=== PATIENT | female | born 1965 | race Caucasian/White ===

== ENCOUNTER 2019-12-09 14:50 | Outpatient (CLI) | payer BC, SELFPAY ==
--- NOTE | ~2019-12-09 | MM_ITS ---
EXAMINATION: MM screening [facility] BI w babs HISTORY: Screening mammogram, family history of breast cancer in her mother. TECHNIQUE: Craniocaudal and mediolateral oblique 3-D tomosynthesis images were obtained and synthetic 2-D images were generated. CAD analysis was submitted and interpreted. COMPARISON: 12/01/2018, 09/10/2017 BREAST PARENCHYMAL COMPOSITION: There are scattered areas of fibroglandular density. FINDINGS: There is no evidence of suspicious mass, calcification, or architectural distortion to sugg est malignancy in either breast. There has been no suspicious interval change. IMPRESSION: 1. No mammographic evidence of malignancy. 2. Recommend routine screening mammography in one year. BI-RADS Category 1: Negative Reviewed, dictated and finalized at location A. NG SETTER
== END 2019-12-09 14:51 | disposition home or self-care (01) ==
LOC: CHSIMG 14:51
PROVIDERS: PCP Internal Medicine; Visit Provider Internal Medicine
DX: Z12.31 Encounter for screening mammogram for malignant neoplasm of breast (principal)
CPT/HCPCS: 77063; 77067

== ENCOUNTER 2021-01-23 15:17 | Outpatient (CLI) | payer BC, SELFPAY ==
--- NOTE | ~2021-01-23 | MM_ITS ---
EXAMINATION: MM screening [facility] BI w babs HISTORY: Screening mammogram TECHNIQUE: Craniocaudal and mediolateral oblique 3-D tomosynthesis images were obtained and synthetic 2-D images were generated. CAD analysis was submitted and interpreted. COMPARISON: 12/09/2019, 12/01/2018, 09/10/2017 BREAST PARENCHYMAL COMPOSITION: There are scattered areas of fibroglandular density. FINDINGS: There is no evidence of suspicious mass, calcification, or architectural distortion to sugg est malignancy in either breast. There has been no suspicious interval change. IMPRESSION: 1. No mammographic evidence of malignancy. 2. Recommend routine screening mammography in one year. BI-RADS Category 1: Negative Reviewed, dictated and finalized at location A.
== END 2021-01-23 15:18 | disposition home or self-care (01) ==
LOC: CHSIMG 15:18
PROVIDERS: PCP Internal Medicine; Visit Provider Internal Medicine
DX: Z12.31 Encounter for screening mammogram for malignant neoplasm of breast (principal)
CPT/HCPCS: 77063; 77067

== ENCOUNTER 2021-05-10 07:36 | Outpatient (CLI) | payer BC, SELFPAY ==
[2021-05-10 07:53] LABS: Add Urine Microscopic? YES; Appearance Urine Clear (Clear); Basophils Absolute Auto 0.03 K/mm3 (0.00-0.10); Basophils Percent Auto 0.5 % (0.0-1.0); Bilirubin Urine Negative (Negative); Blood Urine Negative (Negative); Color Urine Light Yellow (Yellow); Eosinophils Absolute Auto 0.22 K/mm3 (0.02-0.50); Glucose Urine UA Negative (Negative); Hematocrit 40.8 % (35.0-49.0); Hemoglobin 13.6 g/dL (12.0-15.0); Immature Granulocyte Absolute 0.02 K/mm3 (0.00-0.00); Immature Granulocyte Percent A 0.4 % (0.0-0.0); Ketones Urine Negative (Negative); Leukocyte Esterase Ur 2+ (Negative); Lymphocytes Absolute Auto 1.94 K/mm3 (1.10-4.50); Lymphocytes Percent Auto 35.5 % (18.0-42.0); Mean Corpuscular HGB Conc 33.3 g/dL (32.0-36.0); Mean Corpuscular Hemoglobin 28.8 pg (27.0-31.0); Mean Corpuscular Volume 86.4 fL (78.0-102.0); Mean Platelet Volume 9.4 fl (9.2-11.8); Monocytes Absolute Auto 0.53 K/mm3 (0.10-0.90); Monocytes Percent Auto 9.7 % (2.0-11.0); Neutrophils Absolute Auto 2.7 K/mm3 (1.7-7.2); Neutrophils Percent Auto 49.9 % (50.0-70.0); Nitrate Urine Negative (Negative); Platelet Count Result 219 K/mm3 (150-420); Protein Urine Negative (Negative); Red Blood Count 4.72 M/mm3 (4.20-5.40); Red Cell Distribution Width 12.9 % (11.6-14.4); Urobilinogen Urine 0.2 mg/dL (0.2-1.0); White Blood Count 5.5 K/mm3 (4.8-10.8); pH Urine 6.5 (5.0-8.0)
[2021-05-10 07:57] LABS: Bacteria Urine Trace /hpf; RBC Urine None seen /hpf (0-2); Squamous Epithelial Cell Urine Few /hpf (Few)
[2021-05-10 09:34] LABS: Alanine Aminotransferase 25 U/L (14-59); Albumin Level 4.1 g/dL (3.4-5.0); Alkaline Phosphatase 86 U/L (46-116); Aspartate Amino Transferase 20 U/L (15-37); Bilirubin,Total 0.5 mg/dL (0.00-1.00); Blood Urea Nitrogen 14 mg/dL (7-18); Carbon Dioxide 28 mmol/L (21-32); Cholesterol 191 mg/dL (0-200); Estimated Glomerular Filt Rate > 60; Ferritin 85 ng/mL (8-252); Free T4 Free Thyroxine 0.81 ng/dL (0.76-1.46); Glucose 89 mg/dL (70-99); HDL Direct 73 mg/dL (40-60); Iron 78 ug/dL (50-170); LDL Cholesterol Calculated 98 mg/dL (<130); Thyroid Stimulating Hormone 3.64 uIU/mL (0.36-3.74); Total Protein 7.2 g/dL (6.4-8.2); Triglycerides 101 mg/dL (0-150)
[2021-05-10 09:48] LABS: Vitamin B12 > 2000 pg/mL (193-986)
[2021-05-10 09:49] LABS: Folic Acid > 20.0 ng/mL (8.6->20)
[2021-05-10 09:54] LABS: Anion Gap 13 mmol/L (8-16); Chloride 104 mmol/L (98-108); Osmolality Calculated 299 mOsm/kg (285-295); Potassium 4.3 mmol/L (3.5-5.1); Sodium 145 mmol/L (136-145)
[2021-05-15 20:02] LABS: Vitamin D 25 Hydroxy 63 ng/mL (30-100)
== END 2021-05-10 07:37 | disposition home or self-care (01) ==
LOC: CHSLAB 07:38
PROVIDERS: PCP Internal Medicine; Visit Provider Surgery
DX: Z00.00 Encounter for general adult medical examination without abnormal findings (principal); R63.4 Abnormal weight loss; R61 Generalized hyperhidrosis; E66.01 Morbid (severe) obesity due to excess calories; D64.9 Anemia, unspecified; K91.2 Postsurgical malabsorption, not elsewhere classified; Z98.84 Bariatric surgery status
CPT/HCPCS: 36415; 80053; 80061; 81001; 82306; 82607; 82728; 82746; 83540; 84425; 84439; 84443; 85025

== ENCOUNTER 2022-02-06 14:45 | Outpatient (CLI) | payer BC, SELFPAY ==
--- NOTE | ~2022-02-06 | MM_ITS ---
EXAMINATION: MM screening [facility] BI w babs HISTORY: Screening TECHNIQUE: Craniocaudal and mediolateral oblique 3-D tomosynthesis images were obtained and synthetic 2-D images were generated. CAD analysis was submitted and interpreted. COMPARISON: Comparison to multiple prior studies sequentially, with oldest reviewed study dated 01/12. BREAST PARENCHYMAL COMPOSITION: There are scattered areas of fibroglandular density. FINDINGS: There is no evidence of suspicious mass, calcification, or architectural distortion to sugg est malignancy in either breast. There has been no suspicious interval change. IMPRESSION: 1. No mammographic evidence of malignancy. 2. Recommend routine screening mammography in one year. BI-RADS Category 1: Negative Reviewed, dictated and finalized at location A.
== END 2022-02-06 14:46 | disposition home or self-care (01) ==
LOC: CHSIMG 14:47
PROVIDERS: PCP Internal Medicine; Visit Provider Internal Medicine
DX: Z12.31 Encounter for screening mammogram for malignant neoplasm of breast (principal)
CPT/HCPCS: 77063; 77067

== ENCOUNTER 2023-02-10 07:30 | Outpatient (CLI) | payer BC, SELFPAY ==
--- NOTE | ~2023-02-10 | MM_ITS ---
EXAMINATION: MM screening [facility] BI w babs HISTORY: Screening mammogram TECHNIQUE: Craniocaudal and mediolateral oblique 3-D tomosynthesis images were obtained and synthetic 2-D images were generated. CAD analysis was submitted and interpreted. COMPARISON: February 06, 2022, January 23, 2021, December 09, 2019 bilateral screening mammogram examination s BREAST PARENCHYMAL COMPOSITION: There are scattered areas of fibroglandular density. FINDINGS: Stable fibroglandular asymmetry. There is no evidence of suspicious mass, calcification, or architectural distortion to suggest malignancy in either breast. There has been no suspicious interv al change. IMPRESSION: 1. No mammographic evidence of malignancy. 2. Recommend routine screening mammography in one year. BI-RADS Category 2: Benign finding(s). Reviewed, dictated and finalized at location A.
== END 2023-02-10 07:31 | disposition home or self-care (01) ==
LOC: CHSIMG 07:31
PROVIDERS: PCP Internal Medicine; Visit Provider Internal Medicine
DX: Z12.31 Encounter for screening mammogram for malignant neoplasm of breast (principal)
CPT/HCPCS: 77063; 77067

== ENCOUNTER 2023-03-13 15:29 | Outpatient (CLI) | payer BC, SELFPAY ==
[2023-03-13 16:19] LABS: Alanine Aminotransferase 31 U/L (14-59); Aspartate Amino Transferase 24 U/L (15-37)
== END 2023-03-13 15:30 | disposition home or self-care (01) ==
LOC: CHSLAB 15:33
PROVIDERS: PCP Internal Medicine
DX: R74.01 Elevation of levels of liver transaminase levels (principal)
CPT/HCPCS: 36415; 84450; 84460

== ENCOUNTER 2023-12-26 11:39 | Outpatient (CLI) | payer BC, SELFPAY ==
--- NOTE | ~2023-12-26 | XR_ITS ---
EXAMINATION: XR chest 2V DATE: 12/26/2023 12:43 INDICATION: Cough TECHNIQUE: Frontal and lateral views of the chest are obtained COMPARISON: 08/16/2016 FINDINGS: The lungs are free of acute opacities. No pleural effusion or pneumothorax. The cardiomedia stinal silhouette is normal. There is moderate thoracic spondylosis. IMPRESSION: 1. No acute cardiopulmonary abnormality. Reviewed, dictated and finalized at location B. SERVER
[2023-12-26 12:22] LABS: Basophils Absolute Auto 0.04 K/mm3 (0.00-0.10); Basophils Percent Auto 0.6 % (0.0-1.0); Eosinophils Absolute Auto 0.33 K/mm3 (0.02-0.50); Eosinophils Percent Auto 5.2 % (1.0-6.0); Hematocrit 42.8 % (35.0-49.0); Hemoglobin 13.9 g/dL (12.0-15.0); Immature Granulocyte Absolute 0.02 K/mm3 (0.00-0.00); Immature Granulocyte Percent A 0.3 % (0.0-0.0); Lymphocytes Absolute Auto 2.56 K/mm3 (1.10-4.50); Lymphocytes Percent Auto 40.2 % (18.0-42.0); Mean Corpuscular HGB Conc 32.5 g/dL (32.0-36.0); Mean Corpuscular Hemoglobin 27.1 pg (27.0-31.0); Mean Corpuscular Volume 83.6 fL (78.0-102.0); Mean Platelet Volume 9.6 fl (9.2-11.8); Monocytes Absolute Auto 0.46 K/mm3 (0.10-0.90); Monocytes Percent Auto 7.2 % (2.0-11.0); Neutrophils Percent Auto 46.5 % (50.0-70.0); Platelet Count Result 284 K/mm3 (150-420); Red Blood Count 5.12 M/mm3 (4.20-5.40); Red Cell Distribution Width 12.6 % (11.6-14.4); White Blood Count 6.4 K/mm3 (4.8-10.8)
[2023-12-26 12:37] LABS: Alanine Aminotransferase 25 U/L (14-59); Albumin Level 3.8 g/dL (3.4-5.0); Alkaline Phosphatase 91 U/L (46-116); Anion Gap 12 mmol/L (8-16); Aspartate Amino Transferase 19 U/L (15-37); Bilirubin,Total 0.3 mg/dL (0.00-1.00); Blood Urea Nitrogen 18 mg/dL (7-18); Calcium 8.9 mg/dL (8.5-10.1); Carbon Dioxide 25 mmol/L (21-32); Chloride 104 mmol/L (98-108); Estimated Glomerular Filt Rate > 60; Glucose 93 mg/dL (70-99); Osmolality Calculated 293 mOsm/kg (285-295); Sodium 141 mmol/L (136-145)
[2023-12-26 12:49] LABS: Strep Group A RT-PCR NOT DETECTED (Negative)
[2023-12-26 12:57] LABS: SARS-CoV-2 RNA PCR Positive (Negative)
[2023-12-26 12:59] LABS: Influenza A QL RT-PCR Negative (Negative); Influenza B QL RT-PCR Negative (Negative); RSV RNA, RT-PCR Negative (Negative)
== END 2023-12-26 11:40 | disposition home or self-care (01) ==
LOC: CHSLAB 11:41
PROVIDERS: PCP Internal Medicine; Visit Provider Internal Medicine
DX: U07.1 COVID-19 (principal); R05.9 Cough, unspecified
CPT/HCPCS: 36415; 71046; 80053; 85025; 87637; 87651

== ENCOUNTER 2024-03-09 14:35 | Outpatient (CLI) | payer BC, SELFPAY ==
--- NOTE | ~2024-03-09 | MM_ITS ---
EXAMINATION: MM screening [facility] BI w babs HISTORY: Screening mammogram TECHNIQUE: Craniocaudal and mediolateral oblique 3-D tomosynthesis images were obtained and synthetic 2-D images were generated. CAD analysis was submitted and interpreted. COMPARISON: February 10, 2023, February 06, 2022 bilateral screening mammogram examinations BREAST PARENCHYMAL COMPOSITION: There are scattered areas of fibroglandular density. FINDINGS: Stable mild fibroglandular asymmetry. There is no evidence of suspicious mass, calcificatio n, or architectural distortion to suggest malignancy in either breast. There has been no suspicious i nterval change. IMPRESSION: 1. No mammographic evidence of malignancy. 2. Recommend routine screening mammography in one year. BI-RADS Category 1: Negative Reviewed, dictated and finalized at location B.
--- NOTE | ~2024-03-09 | XR_ITS ---
EXAMINATION: XR chest 2V Exam Date/Time: 03/09/2024 14:46 CDT HISTORY: SAN. Comparison: 12/26/2023. RESULT: Lines, tubes, and devices: None. Lungs and pleura: Clear. Cardiomediastinal silhouette: Stable. Other: No acute osseous or upper abdominal finding. IMPRESSION: No acute cardiopulmonary process. Reviewed, dictated and finalized at location K.
--- NOTE | 2024-03-09 15:07 | ECG_ITS ---
SEE SCANNED COPY FOR CONFIRMED REPORT MTDD
[2024-03-09 15:42] LABS: Basophils Absolute Auto 0.04 K/mm3 (0.00-0.10); Basophils Percent Auto 0.6 % (0.0-1.0); Eosinophils Absolute Auto 0.55 K/mm3 (0.02-0.50); Eosinophils Percent Auto 8.6 % (1.0-6.0); Hematocrit 39.3 % (35.0-49.0); Hemoglobin 12.7 g/dL (12.0-15.0); Immature Granulocyte Absolute 0.01 K/mm3 (0.00-0.00); Immature Granulocyte Percent A 0.2 % (0.0-0.0); Lymphocytes Absolute Auto 1.95 K/mm3 (1.10-4.50); Lymphocytes Percent Auto 30.6 % (18.0-42.0); Mean Corpuscular HGB Conc 32.3 g/dL (32-36); Mean Corpuscular Hemoglobin 28.3 pg (27.0-31.0); Mean Corpuscular Volume 87.5 fL (78.0-102.0); Mean Platelet Volume 9.7 fl (9.2-11.8); Monocytes Absolute Auto 0.54 K/mm3 (0.10-0.90); Monocytes Percent Auto 8.5 % (2.0-11.0); Neutrophils Absolute Auto 3.28 K/mm3 (1.70-7.20); Neutrophils Percent Auto 51.5 % (50.0-70.0); Platelet Count Result 241 K/mm3 (150-420); Red Blood Count 4.49 M/mm3 (4.20-5.40); Red Cell Distribution Width 13.2 % (11.6-14.4); White Blood Count 6.4 K/mm3 (4.8-10.8)
[2024-03-09 15:57] LABS: Partial Thromboplastin Time 27.6 Sec (23.9-30.70); Prothrombin Time 10.6 Seconds (9.50-12.1)
[2024-03-09 16:19] LABS: Alanine Aminotransferase 27 U/L (14-59); Albumin Level 3.8 g/dL (3.4-5.0); Alkaline Phosphatase 96 U/L (46-116); Anion Gap 9 mmol/L (4-12); Aspartate Amino Transferase 21 U/L (15-37); Bilirubin,Total 0.3 mg/dL (0.00-1.00); Blood Urea Nitrogen 12 mg/dL (7-18); Calcium 9.3 mg/dL (8.5-10.1); Carbon Dioxide 28 mmol/L (21-32); Chloride 107 mmol/L (98-108); Estimated Glomerular Filt Rate > 60; Glucose 103 mg/dL (70-99); Osmolality Calculated 297 mOsm/kg (285-295); Potassium 4.4 mmol/L (3.5-5.1); Sodium 144 mmol/L (136-145)
== END 2024-03-09 14:36 | disposition home or self-care (01) ==
LOC: CHSIMG 14:36
PROVIDERS: PCP Internal Medicine; Visit Provider Surgery
DX: Z12.31 Encounter for screening mammogram for malignant neoplasm of breast (principal); K82.8 Other specified diseases of gallbladder
CPT/HCPCS: 36415; 71046; 77063; 77067; 80053; 85025; 85610; 85730; 93005

== ENCOUNTER 2025-03-11 07:41 | Outpatient (CLI) | payer OTHER, SELFPAY ==
--- NOTE | ~2025-03-11 | MM_ITS ---
EXAMINATION: MM screening [facility] BI w babs HISTORY: Screening TECHNIQUE: Craniocaudal and mediolateral oblique 3-D tomosynthesis images were obtained and synthetic 2-D images were generated. CAD analysis was submitted and interpreted. COMPARISON: Comparison to multiple prior studies sequentially, with oldest reviewed study dated 11/22. BREAST PARENCHYMAL COMPOSITION: Not dense: There are scattered areas of fibroglandular density. FINDINGS: There is no evidence of suspicious mass, calcification, or architectural distortion to sugg est malignancy in either breast. There has been no suspicious interval change. IMPRESSION: 1. No mammographic evidence of malignancy. 2. Recommend routine screening mammography in one year. BI-RADS Category 1: Negative Reviewed, dictated and finalized at location A.
--- OUTSIDE RECORDS SUMMARY | 2025-03-11 07:45 | XMS_ITS ---
Author Organization Unknown Address [address] [place] [phone] Phone Care Team Providers Care Electronics Installer Name Role Phone CARLOS YANG Attending Unavailable DON NGO Primary Unavailable Immunization Immunization Date Status Additional Notes Code Code System influenza, unspecified formulation 08/25/2018 Completed 88 CVX influenza, unspecified formulation 08/09/2024 Completed 88 CVX Influenza, split virus, trivalent, PF 08/02/2015 Completed 140 CVX Influenza, split virus, quadrivalent, preservative 08/16/2016 Completed 158 C VX Influenza, split virus, quadrivalent, preservative 08/20/2019 Completed 158 C VX zoster recombinant 10/30/2021 Completed 187 CVX zoster recombinant 04/30/2022 Completed 187 CVX COVID-19, mRNA, LNP-S, PF, 1 00 mcg/0.5mL dose or 50 mcg/0.25mL dose 11/18/2020 Completed 207 CVX COVID-19, mRNA, LNP-S, PF, 1 00 mcg/0.5mL dose or 50 mcg/0.25mL dose 12/16/2020 Completed 207 CVX COVID-19, mRNA, LNP-S, PF, 1 00 mcg/0.5mL dose or 50 mcg/0.25mL dose 11/23/2021 Completed 207 CVX Results FERRITIN - Collect Date/Time : 02/16/2025 09:24 [facility] ID: [id number] [address] [place], [place], [id number] LOINC: 2276-4 Test Value Unit Reference Range Code Code System Flag FERRITIN 23.3 ng/mL L=11.1 H=264 2276-4 LOINC VITAMIN B-12 - Collect Date/ Time: 02/16/2025 09:24 [facility] ID: [id number] [address] [place], [place], [id number] LOINC: 2132-9 Test Value Unit Reference Range Code Code System Flag VITAMIN B12 > 993 pq/mL L=239 H=931 H CBC W/ DIFF - Collect Date/T rachna: 02/16/2025 09:24 [facility] ID: [id number] [address] [place], [place], [id number] LOINC: 24412-7 Test Value Unit Reference Range Code Code System Flag WBC 5.1 10^3uL L=4.8 H=10.8 RBC 4.88 10^6uL L=4.20 H=5.40 HEMOGLOBIN 13.8 g/dL L=12.0 H=16.0 718-7 LOINC HEMATOCRIT 44.1 VOL% L=37.0 H=47.0 4544-3 LOINC MCV 90.4 fL L=81.0 H=99.0 MCH 28.3 pg L=27.0 H=32.0 MCHC 31.3 g/dL L=32.0 H=36.0 L PLATELETS 259 10^3uL L=100 H=400 50923-6 LOINC RDW 13.5 % L=11.7 H=15.5 %GRAN 51.0 % L=40.0 H=70.0 03996-2 LOINC %LYMPH 35.8 % L=20.0 H=45.0 736-9 LOINC %MONO 7.7 % L=2.0 H=10.0 96960-0 LOINC %EOS 4.5 % L=0.0 H=6.0 713-8 LOINC %BASO 0.8 % L=0.0 H=3.0 706-2 LOINC #NEUT 2.6 10^3uL L=1.9 H=7.6 49065-2 LOINC #LYMPH 1.8 10^3uL L=0.9 H=4.9 86356-9 LOINC #MONO 0.4 10^3uL L=0.1 H=0.9 50223-1 LOINC #EOS 0.2 10^3uL L=0.0 H=0.6 712-0 LOINC #BASO 0.04 10^3uL L=0.00 H=0.10 26494-7 LOINC #IM GRANS 0.0 10^3uL L=0.0 H=7.0 80550-0 LOINC %IM GRANS 0.2 % L=0.0 H=5.0 66709-4 LOINC %NRB 0.0 L=0.0 H=0.2 64237-7 LOINC #NRB 0.000 L=0.000 H=0.012 38413-1 LOINC MANUAL DIFF NOT INDICATED RBC MORPH NOT INDICATED IRON - Collect Date/Time: 09:24 [facility] ID: [id number] [address] [place] [address], [phone] LOINC: 2498-4 Test Value Unit Reference Range Code Code System Flag IRON 129 ug/dL L=37 H=170 2498-4 LOINC TSH / REFLEX FT4 - Collect D ate/Time: 02/16/2025 09:24 [facility] ID: [id number] [address] [place] [address], [id number] LOINC: Test Value Unit Reference Range Code Code System Flag TSH 2.280 uIU/L L=0.470 H=4.680 66326-6 LOINC 25 HYDROXY VITAMIN D - Colle ct Date/Time: 02/16/2025 09:24 [facility] ID: [id number] [address] [place] [address], [phone] LOINC: Test Value Unit Reference Range Code Code System Flag VITAMIN D 93.0 ng/ml L=30.0 H=100 78740-1 LOINC LIPOPROTEIN a (LPa)(REF) - C ollect Date/Time: 02/16/2025 09:24 [facility] ID: [id number] [address] [place], [id number] LOINC: 91485-9 Test Value Unit Reference Range Code Code System Flag Lipoprotein (a) 125.3 <75.0 71974-9 LOINC H COMPREHENSIVE METABOLIC PANE L - Collect Date/Time: 02/16/2025 09:24 [facility] ID: [id number] [address] [place], [id number] LOINC: 83611-4 Test Value Unit Reference Range Code Code System Flag FASTING YES BUN 15 mg/dL L=7 H=20 3094-0 LOINC CREATININE 0.60 mg/dL L=0.52 H=1.04 2160-0 LOINC GLUCOSE 77 mg/dL L=74 H=106 2345-7 LOINC SODIUM 142 mmol/L L=132 H=144 2951-2 LOINC POTASSIUM 4.0 mmol/L L=3.5 H=5.1 2823-3 LOINC CHLORIDE 106 mmol/L L=98 H=107 2075-0 LOINC CO2 26.0 mmol/L L=22.0 H=30.0 8-9 LOINC ANION GAP 14 L=10 H=20 10143-0 LOINC OSMOLALITY 294 mOs/kG L=280 H=296 96123-7 LOINC BUN/CREAT 25.0 3097-3 LOINC CALCIUM 9.5 mg/dL L=8.3 H=10.5 37188-1 LOINC AST 32 U/L L=15 H=46 1920-8 LOINC ALT 24 U/L L=9 H=72 1742-6 LOINC ALKALINE PHOS 104 U/L L=38 H=126 6768-6 LOINC TOTAL BILI 0.6 mg/dL L=0.2 H=1.3 1975-2 LOINC ALBUMIN 4.9 G/dL L=3.5 H=5.0 1751-7 LOINC TOTAL PROTEIN 8.3 g/L L=6.3 H=8.2 2885-2 LOINC H A/G RATIO 1.4 58683-9 LOINC AGE 60 04175-1 LOINC eGFR NON-AFR 109 ml/min eGFR AFR AMER 132 ml/min FOLIC ACID (SERUM) - Collect Date/Time: 02/16/2025 09:24 [facility] ID: [id number] [address] [place] [address], [id number] LOINC: 2284-8 Test Value Unit Reference Range Code Code System Flag FOLATE 19.4 ng/mL L=2.7 H=20.0 2284-8 LOINC RED BLOOD CELL FOLATE - Raisa ect Date/Time: 02/16/2025 09:24 [facility] ID: [id number] [place] [address], [id number] LOINC: 2283-0 Test Value Unit Reference Range Code Code System Flag Folate, Hemolysate 390.0 Not Estab. 2282-2 LOINC Hematocrit 45.2 34.0-46.6 4544-3 LOINC Folate, RBC 863 >498 2283-0 LOINC Social History Type Status Start Date End Date Code Code Syst em Smoking History Unknown if ever smoked [id number] Sex Female Hospital Discharge Instructions Should you have any questions prior to discharge, please contact a member of your healthcare team. If you have left the hospital and have any questions, please contact your primary care physician. Reason For Referral No Data Found Plan of Treatment No Data Found Encounters Encounter Diagnosis Start Date Code Code Sys tem Encounter for screening for cardiovascular disorders 0 02/16/2025 SNOMED-CT Personal Care Team Section Performer Name Performer Role Active Date Inactive Christian Roque PCP - Primary care physician 2024-09-01
--- OUTSIDE RECORDS SUMMARY | 2025-03-11 07:46 | XMS_ITS ---
Author Organization Unknown Address [address] [place] [phone] Phone Care Team Providers Care Gas Fitter Name Role Phone CARLOS YANG Attending Unavailable [...] mcg/0.25mL dose 11/23/2021 Completed 207 CVX Results LUMBAR SPINE - Completed: 10:42 LOINC: EXAM DESCRIPTION: LUMBAR SPINE REASON FOR STUDY: GENERALIZED LOW BACK PAIN NO INJURY Duration: 2 WEEKS TECHNIQUE: 3 radiographic view(s) of the lumbar spine. COMPARISON: None FINDINGS: There is no definite evidence of acute fracture or subluxation involving the lumbar spine. There is minimal to mild levoscoliotic curvature lumbar spine centered at L3. There is minimal retrolisthesis of L1 on L2, L2 on L3, L3 on L4, and L5 on S1. There are multilevel degenerative changes lumbar spine with disc space narrowing, endplate osteophytosis, and facet arthropathy. There are degenerative changes bilateral sacroiliac joints with joint space narrowing and mild sclerosis. Postsurgical clips are noted in the right upper quadrant of the abdomen. IMPRESSION: ? ? Multilevel lumbar spondylosis without definite evidence of acute fracture or subluxation. THIS IS AN ELECTRONICALLY VERIFIED FINAL REPORT 09/01/2024 10:56 AM - Electronically signed by Usama Braun D.O. PS: PS Report ID: [id number] Reading Location: [id number] Social History Type Status Start Date End Date Code Code Syst em Smoking History Unknown if ever smoked [id number] Sex Female Hospital Discharge Instructions Should you have any questions prior to discharge, please contact a member of your healthcare team. If you have left the hospital and have any questions, please contact your primary care physician. Reason For Referral No Data Found Plan of Treatment No Data Found Encounters Encounter Diagnosis Start Date Code Code Sys tem Spondylosis without myelopat hy or radiculopathy, lumbar region 09/01/2024 SNOMED-CT Personal Care Team Section Performer Name Performer Role Active Date Inactive Christian Roque PCP - Primary care physician 2024-09-01 Imaging Narrative Notes
--- OUTSIDE RECORDS SUMMARY | 2025-03-11 07:46 | XMS_ITS ---
Author Organization Unknown Address [address] [place] [phone] Phone Care Team Providers Care Loom Starter Name Role Phone CARLOS YANG Attending Unavailable [...] mcg/0.25mL dose 11/23/2021 Completed 207 CVX Results 25 HYDROXY VITAMIN D - Colle ct Date/Time: 09/01/2024 10:00 [facility] ID: [id number] [place], [place], [phone] LOINC: Test Value Unit Reference Range Code Code System Flag VITAMIN D 79.0 ng/ml L=30.0 H=100 04959-8 LOINC CBC W/ DIFF - Collect Date/T rachna: 09/01/2024 10:00 [facility] ID: [id number] [address] [place], [place], [phone] LOINC: 74861-6 Test Value Unit Reference Range Code Code System Flag WBC 5.1 10^3uL L=4.8 H=10.8 RBC 4.73 10^6uL L=4.20 H=5.40 HEMOGLOBIN 13.4 g/dL L=12.0 H=16.0 718-7 LOINC HEMATOCRIT 41.9 VOL% L=37.0 H=47.0 4544-3 LOINC MCV 88.6 fL L=81.0 H=99.0 MCH 28.3 pg L=27.0 H=32.0 MCHC 32.0 g/dL L=32.0 H=36.0 PLATELETS 284 10^3uL L=100 H=400 71042-5 LOINC RDW 12.7 % L=11.7 H=15.5 %GRAN 47.6 % L=40.0 H=70.0 18176-7 LOINC %LYMPH 39.0 % L=20.0 H=45.0 736-9 LOINC %MONO 8.7 % L=2.0 H=10.0 87365-1 LOINC %EOS 3.5 % L=0.0 H=6.0 713-8 LOINC %BASO 0.8 % L=0.0 H=3.0 706-2 LOINC #NEUT 2.4 10^3uL L=1.9 H=7.6 21862-8 LOINC #LYMPH 2.0 10^3uL L=0.9 H=4.9 52782-2 LOINC #MONO 0.4 10^3uL L=0.1 H=0.9 96638-7 LOINC #EOS 0.2 10^3uL L=0.0 H=0.6 712-0 LOINC #BASO 0.04 10^3uL L=0.00 H=0.10 77692-9 LOINC #IM GRANS 0.0 10^3uL L=0.0 H=7.0 89462-0 LOINC %IM GRANS 0.4 % L=0.0 H=5.0 85105-2 LOINC %NRB 0.0 L=0.0 H=0.2 27544-1 LOINC #NRB 0.000 L=0.000 H=0.012 70764-1 LOINC MANUAL DIFF NOT INDICATED RBC MORPH NOT INDICATED COMPREHENSIVE METABOLIC PANE L - Collect Date/Time: 09/01/2024 10:00 [facility] ID: [id number] [address] [place], [place], [phone] LOINC: 93755-8 Test Value Unit Reference Range Code Code System Flag FASTING NO BUN 13 mg/dL L=7 H=20 3094-0 LOINC CREATININE 0.60 mg/dL L=0.52 H=1.04 2160-0 LOINC GLUCOSE 88 mg/dL L=74 H=106 2345-7 LOINC SODIUM 142 mmol/L L=132 H=144 2951-2 LOINC POTASSIUM 4.1 mmol/L L=3.5 H=5.1 2823-3 LOINC CHLORIDE 102 mmol/L L=98 H=107 2075-0 LOINC CO2 28.0 mmol/L L=22.0 H=30.0 8-9 LOINC ANION GAP 16 L=10 H=20 98736-4 LOINC OSMOLALITY 294 mOs/kG L=280 H=296 74171-9 LOINC BUN/CREAT 21.7 3097-3 LOINC CALCIUM 9.8 mg/dL L=8.3 H=10.5 59046-0 LOINC AST 25 U/L L=15 H=46 1920-8 LOINC ALT 18 U/L L=9 H=72 1742-6 LOINC ALKALINE PHOS 99 U/L L=38 H=126 6768-6 LOINC TOTAL BILI 0.5 mg/dL L=0.2 H=1.3 1975-2 LOINC ALBUMIN 4.4 G/dL L=3.5 H=5.0 1751-7 LOINC TOTAL PROTEIN 7.6 g/L L=6.3 H=8.2 2885-2 LOINC A/G RATIO 1.4 66433-7 LOINC AGE 59 55418-2 LOINC eGFR NON-AFR 110 ml/min eGFR AFR AMER 133 ml/min TSH / REFLEX FT4 - Collect D ate/Time: 09/01/2024 10:00 [facility] ID: [id number] [place] [address], [phone] LOINC: Test Value Unit Reference Range Code Code System Flag TSH 1.530 uIU/L L=0.470 H=4.680 09640-3 LOINC LIPID PANEL - Collect Date/T rachna: 09/01/2024 10:00 [facility] ID: [id number] [place] [address], [id number] LOINC: 64073-3 Test Value Unit Reference Range Code Code System Flag FASTING NO CHOLESTEROL 175 mg/dL L=0 H=200 3-3 LOINC TRIGLYCERIDE 96 mg/dL L=0 H=150 2571-8 LOINC HDL 68 mg/dL L=40 H=60 5-9 LOINC H LDL 67 mg/dL 9-1 LOINC URINALYSIS w/Microscopy/C&S if indicated - Collect Date/Time: 09/01/2024 10:00 [facility] ID: [id number] [place] [address], [phone] LOINC: 62341-0 Test Value Unit Reference Range Code Code System Flag UR SOURCE CLEAN CATCH 78764-9 LOINC COLOR YELLOW YELLOW 5778-6 LOINC CLARITY SL CLOUDY CLEAR 16059-8 LOINC SPEC GRAVITY 1.025 1.000-1.030 5811-5 LOINC PH 5.5 5.0 - 6.5 5803-2 LOINC LEUK EST NEGATIVE NEGATIVE 5799-2 LOINC NITRATE NEGATIVE NEGATIVE PROTEIN NEGATIVE NEGATIVE 5804-0 LOINC GLUCOSE NEGATIVE NEGATIVE 62477-3 LOINC KETONES NEGATIVE NEGATIVE 12568-5 LOINC UROBILINOGEN 0.2 NEGATIVE 5818-0 LOINC BILIRUBIN NEGATIVE NEGATIVE 33861-7 LOINC BLOOD TRACE-JUAN A NEGATIVE 69584-0 LOINC WBC 0-2 0 - 2 53489-8 LOINC RBC 0-2 0 - 2 01150-0 LOINC EPITHELIAL OCCASIONA RARE-FEW 45357-1 LOINC BACTERIA 1+ NONE SEEN 54379-6 LOINC MUCUS 2+ NONE SEEN 8247-9 LOINC A YEAST NOT PRESENT NOT PRESENT 93415-7 LOINC CASTS NONE SEEN 25282-6 LOINC CRYSTALS SEE BELOW 43150-7 LOINC CULTURE? NO 8251-1 LOINC DIAGNOSIS N/A HEPATITIS C AB (HCV Ab) - Co llect Date/Time: 09/01/2024 10:00 [facility] ID: [id number] [place] [address], [phone] LOINC: 21299-2 Test Value Unit Reference Range Code Code System Flag Hep C Virus Ab Non Reactive Non Reactive 14301-3 LOINC SEND TO IFC? NO VITAMIN B-12 - Collect Date/ Time: 09/01/2024 10:00 [facility] ID: [id number] [place] [address], [id number] LOINC: 2132-9 Test Value Unit Reference Range Code Code System Flag VITAMIN B12 > 993 pq/mL L=239 H=931 H Social History Type Status Start Date End Date Code Code Syst em Smoking History Unknown if ever smoked [id number] Sex Female Hospital Discharge Instructions Should you have any questions prior to discharge, please contact a member of your healthcare team. If you have left the hospital and have any questions, please contact your primary care physician. Reason For Referral No Data Found Plan of Treatment No Data Found Personal Care Team Section Performer Name Performer Role Active Date Inactive Christian Roque PCP - Primary care physician 2024-09-01
== END 2025-03-11 07:42 | disposition home or self-care (01) ==
LOC: CHSIMG 07:43
DX: Z12.31 Encounter for screening mammogram for malignant neoplasm of breast (principal)
CPT/HCPCS: 77063; 77067